=== PATIENT | male | born 1980 | race African-American/Black ===

== ENCOUNTER 2016-10-21 21:45 | Emergency (ER) | payer OTHER ==
--- NOTE | ~2016-10-21 | CR63 ---
[facility] A Service of [facility] RADIOLOGY TEXT RESULTS PATIENT: MAGGIE ESCUDERO LOCATION: [facility] : [birth year] UNIT #: [id number] AGE: [address]: Robert Lyn MD SEX: M ORDER DR: [id number] [address] [address] [id number] MR#: [id number] Acc #: [id number] NAME: MAGGIE ESCUDERO. : 1980 SEX: M STUDY DATE/TIME: 10/21/2016 21:31 UNIT: [facility] ROOM: STUDY DESCRIPTION: CR Chest 2 View Attending Physician: Robert Lyn M.D. Ordering Physician: Robert Lyn M.D. Primary Care Physician: Primary Care Physician No MEDICAL IMAGING REPORT This report is preliminary unless electronic signature is present EXAM Two-view chest HISTORY Chest pain left side x2 days COMPARISON 02/04/2015 FINDINGS PA and lateral examination of the chest upright shows a good expansion of the parenchyma with a normal distribution of the pulmonary vascularity. There is no indication of congestion, effusion, infiltrate, tumor, or nodular density. The pleural reflections and diaphragmatic contours are normal. The cardiac silhouette and mediastinal anatomy is within normal limits. IMPRESSION Normal chest. Dictated by... Ana Gomez M.D. THIS IS AN ELECTRONICALLY VERIFIED REPORT Ana Gomez M.D. at 10/22/2016 1:08 PM ARTURO/stefany TD: 10/21/2016 23:58 JOB #: [id number] MEDICAL IMAGING REPORT [facility] A Service of [facility] RADIOLOGY TEXT RESULTS PATIENT: MAGGIE ESCUDERO LOCATION: [facility] : [birth year] UNIT #: [id number] AGE: [address]: Robert Lyn MD SEX: M ORDER DR: Page 1 of 1 COPY
--- NOTE | ~2016-10-21 | EKG ---
PATIENT: MAGGIE ESCUDERO UNIT #: [id number] Ventricular Rate: 69 BPM Atrial Rate: 69 BPM P-R Interval: 130 ms QRS Duration: 76 ms Q-T Interval: 394 ms QTC Calculation(Bezet): 422 ms P Orondo: 76 degrees Calculated R Orondo: 75 degrees Calculated T Orondo: 59 degrees Diagnosis Line: Normal sinus rhythm with sinus arrhythmia Diagnosis Line: Normal ECG Diagnosis Line: Diagnosis Line: Confirmed by JORDANA BEJARANO MD ([id number]) on 10/22/2016 Diagnosis Line: 10:10:15 PM INTERPRETING MD: CARLEE LANDEROS
[2016-10-21 21:18] LABS: POC - CKMB <1.0 ng/mL (0.0-7.9); POC - TROPONIN <0.05 ng/mL (<=0.05)
[2016-10-21 21:33] LABS: BASOPHIL# 0.1 X10e3 (0-0.3); BASOPHIL% 1.2 % (0-2.5); EOSINOPHIL# 0.4 X10e3 (0-0.7); EOSINOPHIL% 3.9 % (0.0-7.0); HEMATOCRIT 42.4 % (38.0-50.0); HEMOGLOBIN 14.2 gm/dL (13.0-16.0); LYMPHOCYTE# 2.9 X10e3 (1.0-3.5); LYMPHOCYTE% 30.9 % (17.0-45.0); MEAN CORPUSCULAR HEMOGLOBIN 32.2 PG (28-34); MEAN CORPUSCULAR HGB CONC 33.5 g/dL (30-36); MEAN PLATELET VOLUME 6.8 FL (6.5-11.5); MONOCYTE% 10.9 % (3.0-12.0); NEUTROPHIL% 53.1 % (40-75); PLATELET COUNT 325 X10e3 (140-420); RED BLOOD COUNT 4.42 X10e (3.90-5.60); RED CELL DISTRIBUTION WIDTH 14.4 % (11.0-15.5); WHITE BLOOD COUNT 9.5 X10e3 (4.0-10.5)
[2016-10-21 21:34] LABS: DIFF IND NO
[2016-10-21 22:09] LABS: CALCIUM SERUM 9.1 mg/dL (8.4-10.2); GLOM FILT RATE Estimated 112.5 mL/min (>60); POTASSIUM 3.8 mmol/L (3.5-5.1)
== END 2016-10-21 22:37 | disposition home or self-care (01) ==
LOC: CED 21:45
PROVIDERS: Emergency Medicine
DX: R07.89 Other chest pain (principal); M54.9 Dorsalgia, unspecified; F17.210 Nicotine dependence, cigarettes, uncomplicated
CPT/HCPCS: 36415; 71020; 80048; 82553; 83880; 84484; 85025; 93005; 96374; 99284; J1885